=== PATIENT | female | born 1990 | race Caucasian/White ===

== ENCOUNTER 2016-10-02 19:09 | Emergency (ER) | payer OTHER ==
[~2016-10-02] VITALS: Ht 167.6 cm; Wt 74.0 kg
[2016-10-02 19:30] VITALS: Ht 167.6 cm; Wt 74.0 kg
--- NOTE | 2016-10-02 20:38 | ERA ---
ER Documentation Chief Complaint Date/Time DATE: 10/02/16 TIME: 20:35 Chief Complaint punctured wound left leg w/ swelling and hematoma left leg, sp fall shower HPI This is a 25-year-old female who presents with left lower extremity pain 2 hours after mechanical fall when getting out of shower. Patient grabbed onto the towel rack which fell and scraped her left lower extremity on the anterior side. Patient describes the pain as 6 out of 10. Patient also says that the affected area has bled "a lot". Can put an exact measurement on the bleeding but would say more than 1 cup. Patient denies loss of consciousness, vomiting, stab/puncture wound change in behavior altered mental status per her boyfriend or injury to other parts of the body. There are no other complaints at this time. ROS All systems reviewed and are negative except as per history of present illness. Medications Home Meds Active Scripts Acetaminophen* (Tylenol*) 325 Mg Tablet, 1 TAB PO Q6 Y for PAIN AND OR ELEVATED TEMP, #20 TAB Prov:JERRY ALBARADO PA-C 10/02/16 Allergies Allergies: Coded Allergies: No Known Allergy (Unverified , 10/02/16) Physical Exam Vitals Vital Signs Date Time Temp Pulse Resp B/P Pulse Ox O2 Delivery O2 Flow Rate FiO2 10/02/16 19:30 97.9 101 20 142/89 100 Physical Exam Const: Well-appearing 25-year-old female. Head: Atraumatic Eyes: Normal Conjunctiva ENT: Normal External Ears, Nose and Mouth. Neck: Full range of motion..~ No meningismus. Resp: Clear to auscultation bilaterally Cardio: Regular rate and rhythm, no murmurs capillary refill less than 2 seconds bilaterally. Abd: Soft, non tender, non distended. Normal bowel sounds Skin: No petechiae or rashes Back: No midline or flank tenderness Ext: 5 cm abrasion that runs horizontally on the anterior portion of the left lower extremity. Mild bruising of the affected area. No puncture wound visualized. Sensation normal and equal in all distributions bilaterally. Limited range of motion secondary to pain that. Range of motion improved on reevaluation. Neur: Awake and alert. Neurovascularly intact bilaterally. Psych: Normal Mood and Affect Results 24 hrs Current Medications Medications (Trade) Dose Ordered Sig/Bc Route PRN Reason Start Time Stop Time Status Last Admin Dose Admin Acetaminophen (Tylenol Tab) 650 mg ONCE ONCE PO 10/02/16 21:00 10/02/16 21:01 DC 10/02/16 20:44 Procedures/MDM Patient was worked up and evaluated for left lower leg abrasion. X-ray was taken that showed no acute fracture or no retained opaque foreign body. I have little suspicion for infection or neurovascular compromise at this time. Patient's vitals are stable and current condition is appropriate for discharge. Patient will be discharged at this time with discharge instructions with return precautions. Departure Diagnosis: Primary Impression: Abrasion Additional Impression: Abrasion, lower leg, anterior Qualified Code: S80.812A - Abrasion, lower leg, anterior, left, initial encounter Condition: Stable Additional Instructions: Follow up with your PCP within the next 1-3 days for a more thorough evaluation and a possible referral to a specialist. Return the the emergency department immediately if symptoms worsen or change. If you have any questions regarding medications, ask your pharmacist or us before you leave. If any adverse reactions occur while taking your medications, discontinue the treatment and return to the emergency department immediately. Take your medications as directed, and complete the entire course of treatment. JERRY ALBARADO PA-C October 02, 2016 20:38
[2016-10-02] MEDS ORDERED: ACETAMINOPHEN 325 MG TAB PO ONE (21:00)
--- NOTE | 2016-10-02 21:36 | RADRPT ---
PROCEDURE: XR Tibia and Fibula. CLINICAL INDICATION: Trauma TECHNIQUE: AP and lateral of the left tibia and fibula were obtained. COMPARISON: None available FINDINGS: There is normal mineralization and alignment. No fracture or osseous lesion is identified. Anterior soft tissue swelling with some subcutaneous gas is concerning for laceration. There is no evidence of radiopaque foreign body. RPTAT:HJJR IMPRESSION: 1. Suspected anterior mid leg laceration without a retained radiopaque foreign body. 2. No osseous abnormality involving the left tibia and fibula. Physician Jose Date Time Electronically viewed and signed by Physician Jose on 10/02/2016 21:36 JR/
[2016-10-02] MEDS ORDERED: ACET325T33 PO (21:50)
[2016-10-02 22:09] VITALS: BP 120/80; PULSE 103; RESP 16; TEMP 98.2
== END 2016-10-02 22:12 | disposition home or self-care (01) ==
LOC: FTE 19:09
DX: S80.812A Abrasion, left lower leg, initial encounter (principal); W18.2XXA Fall in (into) shower or empty bathtub, initial encounter; Y92.9 Unspecified place or not applicable
CPT/HCPCS: 73590; Z7502; Z7610